=== PATIENT | male | born 1965 | race Caucasian/White ===

== ENCOUNTER → 2019-08-19 10:08 | Outpatient (BNVA) | payer OTHER, MEDICARE, SELFPAY | PROVIDERS: PCP Internal Medicine Rheumatology; Referring Provider Pain Medicine Pain Medicine; Visit Provider Internal Medicine Rheumatology | DX: L93.0 Discoid lupus erythematosus (principal); M19.90 Unspecified osteoarthritis, unspecified site; Z79.899 Other long term (current) drug therapy; Z11.59 Encounter for screening for other viral diseases; I10 Essential (primary) hypertension; F17.210 Nicotine dependence, cigarettes, uncomplicated | CPT/HCPCS: 36415; 81001; 85025; 86480; 99204 ==

== ENCOUNTER 2019-08-19 12:30 | Outpatient (CLI) | payer OTHER, SELFPAY ==
--- NOTE | 2019-08-19 12:48 | XRR_ITS ---
PROCEDURE INFORMATION: Exam: XR Left Foot Complete Exam date and time: 08/19/2019 12:49 PM Age: 54 years old Clinical indication: Condition or disease; Other: Inflammatory arthritis; Bilateral TECHNIQUE: Imaging protocol: XR Left foot. Views: 3 or more views. COMPARISON: No relevant prior studies available. FINDINGS: Bones/joints: There is no evidence for acute fracture or malalignment. No joint space narrowing or erosions. Soft tissues: Normal. XR/XR foot LT min 3V* [id number] IMPRESSION: No acute findings.
--- NOTE | 2019-08-19 12:48 | XRR_ITS ---
PROCEDURE INFORMATION: Exam: XR Right Foot Complete Exam date and time: 08/19/2019 1:14 PM Age: 54 years old Clinical indication: Condition or disease; Other: Inflammatory arthritis; Bilateral TECHNIQUE: Imaging protocol: XR Right foot. Views: 3 or more views. COMPARISON: No relevant prior studies available. FINDINGS: Bones/joints: There is no evidence for acute fracture or malalignment. No significant joint space narrowing or osteophyte formation. Soft tissues: Normal. XR/XR foot RT min 3V* [id number] IMPRESSION: No acute findings.
--- NOTE | 2019-08-19 12:48 | XRR_ITS ---
PROCEDURE INFORMATION: Exam: XR Right Hand Exam date and time: 08/19/2019 1:08 PM Age: 54 years old Clinical indication: Condition or disease; Other: Inflammatory arthritis; Prior surgery; Surgery date: 6+ months; Surgery type: Bilateral hand TECHNIQUE: Imaging protocol: XR Right hand. Views: 3 or more views. COMPARISON: No relevant prior studies available. FINDINGS: Bones/joints: There is no evidence for acute fracture or malalignment. No significant joint space narrowing or erosions. Soft tissues: Normal. XR/XR hand RT min 3V* [id number] IMPRESSION: No acute findings.
--- NOTE | 2019-08-19 12:48 | XRR_ITS ---
PROCEDURE INFORMATION: Exam: XR Chest, 2 Views Exam date and time: 08/19/2019 1:04 PM Age: 54 years old Clinical indication: Condition or disease; Other: Inflammatory arthritis TECHNIQUE: Imaging protocol: XR of the chest Views: 2 views. COMPARISON: No relevant prior studies available. FINDINGS: Lungs: Unremarkable. No consolidation. Pleural space: Unremarkable. No pleural effusion. No pneumothorax. Heart/Mediastinum: Unremarkable. No cardiomegaly. Bones/joints: Unremarkable. XR/XR chest 2V* [id number] IMPRESSION: No acute findings.
--- NOTE | 2019-08-19 12:48 | XRR_ITS ---
PROCEDURE INFORMATION: Exam: XR Left Hand Exam date and time: 08/19/2019 1:10 PM Age: 54 years old Clinical indication: Condition or disease; Other: Inflammatory arthritis; Prior surgery; Surgery date: 6+ months; Surgery type: Bilateral hand TECHNIQUE: Imaging protocol: XR Left hand. Views: 3 or more views. COMPARISON: No relevant prior studies available. FINDINGS: Bones/joints: There is no evidence for acute fracture or malalignment. No significant joint space narrowing or erosions. Soft tissues: Normal. XR/XR hand LT min 3V* [id number] IMPRESSION: No acute findings.
== END 2019-08-19 12:31 | disposition home or self-care (01) ==
LOC: RAD 12:38
PROVIDERS: PCP Student in an Organized Health Care Education/Training Program; Referring Provider Student in an Organized Health Care Education/Training Program; Visit Provider Internal Medicine Rheumatology
DX: M19.90 Unspecified osteoarthritis, unspecified site (principal)
CPT/HCPCS: 71046; 73130; 73630; 80076; 82306; 82565; 82570; 84156; 85651; 86140; 86704; 86803; 87340